=== PATIENT | female | born 1975 | race Caucasian/White ===

== ENCOUNTER 2017-04-09 18:00 | Emergency (ER) | payer OTHER ==
[~2017-04-09] VITALS: Ht 157.5 cm; Wt 66.8 kg
[~2017-04-09 18:00] MED LIST: BACTRIM,SEPT1 TABLET PO; DIFLUCAN150 MG PO; Feosol PO; MUCINEX600 MG PO; Motrin PO; NOHOMEMEDS; Percocet 5/325,Endoc PO; ZOFRAN ODT4 MG PO
[2017-04-09 18:58] LABS: HEMATOCRIT 38.3 % (36.0-46.0); MCH 30.8 PG (29.0-34.0); MCHC 33.7 G/DL (30.0-36.0); MCV 91.4 FL (83-99); MEAN PLAT.VOLUME 9.2 uM^3 (9.5-12.4); PLATELET COUNT 361 K/uL (156-360); RBC DIS.WIDTH-CV 12.6 % (11.8-14.6); RED BLOOD COUNT 4.19 M/uL (3.80-5.20); WHITE BLOOD COUNT 11.5 K/uL (4.1-10.2)
[2017-04-09 19:07] LABS: CHLORIDE 106 mEq/L (99-109); POTASSIUM 3.7 mEq/L (3.7-5.4); SODIUM 138 mEq/L (136-147)
[2017-04-09 19:09] LABS: GLUCOSE 93 mg/dL (70-99)
[2017-04-09 19:10] LABS: ANION GAP 8 MEQ/L (2-14)
[2017-04-09 19:13] LABS: GFR ESTIMATE (CALCULATED) > 59 mL/min/
[2017-04-09 19:14] LABS: UREA NITROGEN (BUN) 7 mg/dL (9-23)
[2017-04-09 19:40] LABS: ADD MIUA? YES; BILIRUBIN NEGATIVE; BLOOD NEGATIVE; COLOR YELLOW ((YELLOW)); GLUCOSE (STRIP) NEGATIVE; KETONES 5; LEUKOCYTES TRACE; NITRITE NEGATIVE; PROTEIN (STRIP) NEGATIVE; SPECIFIC GRAVITY 1.023 (1.000-1.030)
[2017-04-09 19:49] LABS: BACTERIA RARE /HPF; EPITHELIAL CELLS 1+ /HPF; MUCUS TRACE /LPF; RED BLOOD CELLS 0-5 /HPF (0-5); UCUL ADDED? NO; WHITE BLOOD CELLS 0-5 /HPF (0-5)
[2017-04-09 23:26] VITALS: BP 132/65
== END 2017-04-09 23:27 | disposition home or self-care (01) ==
LOC: RME 18:00 → EME 18:00 → RME 23:27
PROVIDERS: Physician Assistant
DX: K92.1 Melena (principal); K58.9 Irritable bowel syndrome, unspecified; K21.9 Gastro-esophageal reflux disease without esophagitis; F32.9 Major depressive disorder, single episode, unspecified; F41.9 Anxiety disorder, unspecified; J45.909 Unspecified asthma, uncomplicated; Z87.442 Personal history of urinary calculi; F17.200 Nicotine dependence, unspecified, uncomplicated; Z91.040 Latex allergy status; Z88.0 Allergy status to penicillin; Z88.6 Allergy status to analgesic agent; Z88.8 Allergy status to other drugs, medicaments and biological substances
CPT/HCPCS: 74177; 80048; 81003; 85027; 86850; 86900; 86901; J7030

== ENCOUNTER → 2017-04-19 | Outpatient (CLI) | payer OTHER ==
[~2017-04-19] VITALS: Ht 157.5 cm; Wt 63.5 kg
[~2017-04-19] MED LIST changes: +ABILIFY20 MG PO; +DEPO-PROVER150 MG/ML IM; +FLONASE ALLERG9.9 ML BOTH NARES; +MIRALAX17 GM PO; +RISPERDAL1 MG PO; +TRAZODONE HCL50 MG PO; +TYLENOL EXTRA500 MG PO; +VENLAFAXINE HCL75 M3 PO; +VENTOLIN HFA18 GM IH; +ZOVIRAX400 MG PO; +ZYRTEC10 M3 PO
== END | disposition home or self-care (01) ==
LOC: AMB 09:45
PROC: 0DJD8ZZ Inspection of Lower Intestinal Tract, Via Natural or Artificial Opening Endoscopic (ICD-10-PCS; principal; 2017-04-19)
DX: K59.00 Constipation, unspecified (principal); K92.1 Melena; K64.8 Other hemorrhoids; D64.9 Anemia, unspecified; K21.9 Gastro-esophageal reflux disease without esophagitis; F41.9 Anxiety disorder, unspecified; J45.909 Unspecified asthma, uncomplicated; Z86.73 Personal history of transient ischemic attack (TIA), and cerebral infarction without residual deficits
CPT/HCPCS: J2250

== ENCOUNTER → 2017-09-27 | Outpatient (CLI) | payer OTHER ==
[~2017-09-27] VITALS: Ht 157.5 cm; Wt 59.9 kg
[~2017-09-27] MED LIST changes: +NICODERM CQ1 EAC1 TD; +PRILOSEC20 MG PO; +[UNRECOGNIZED DRUG - REMARK]
== END | disposition home or self-care (01) ==
LOC: AMB 10:00
PROC: 0DB58ZX Excision of Esophagus, Via Natural or Artificial Opening Endoscopic, Diagnostic (ICD-10-PCS; principal; 2017-09-27)
PROC: 0DB68ZX Excision of Stomach, Via Natural or Artificial Opening Endoscopic, Diagnostic (ICD-10-PCS; principal; 2017-09-27)
DX: K29.70 Gastritis, unspecified, without bleeding (principal); K44.9 Diaphragmatic hernia without obstruction or gangrene; K21.9 Gastro-esophageal reflux disease without esophagitis; R13.10 Dysphagia, unspecified; D64.9 Anemia, unspecified; F17.200 Nicotine dependence, unspecified, uncomplicated; Z80.3 Family history of malignant neoplasm of breast; Z82.49 Family history of ischemic heart disease and other diseases of the circulatory system; Z88.0 Allergy status to penicillin; Z88.6 Allergy status to analgesic agent
CPT/HCPCS: 88305; 88342 TC; J2250